=== PATIENT | male | born 1940 | race Caucasian/White ===

== ENCOUNTER 2019-05-02 07:58 | Outpatient (CLI) | payer MEDICARE, BC ==
--- NOTE | 2019-05-02 11:14 | MRI ---
MRI PROSTATE WITH AND WITHOUT CONTRAST: HISTORY: Prostate cancer. TECHNIQUE: Multiplanar, multisequence MR images were obtained of the prostate with and without IV contrast. FINDINGS: There is moderate to severe hypertrophy of the central gland, consistent with BPH. There is a heterog eneous area of subtle low T2 signal in the right aspect of the prostate in the mid gland. This measur es 1.3 cm in greatest dimension. This region demonstrates a washout type curve after the administrati on of contrast. No other suspicious low T2 signal lesions are seen throughout the prostate. No restricted diffusion is seen in the peripheral zone of the prostate. No low signal is seen on the ADC map within the peripheral zone of the prostate. The seminal vesicles are intact. The neurovascular bundles are intact. The right neurovascular bundle is near the lesion marked on DynaCAD. No pelvic adenopathy is seen. No marrow signal abnormality is present. IMPRESSION: There is a lesion at the right aspect of the prostate which is a PI-RADS category 3 lesion, as it is heterogeneous in appearance. However there are washout characteristics in this region and this lesion would be upgraded to a PI-RADS category 4 - high likelihood that a clinically significant cancer is present. POS: CET
== END 2019-05-02 07:59 | disposition home or self-care (01) ==
LOC: TBSIIMAG 07:58
PROVIDERS: ATTEND Urology
DX: C61 Malignant neoplasm of prostate (principal)
CPT/HCPCS: 72197; 82565

== ENCOUNTER 2022-01-13 13:45 | Outpatient (CLI) | payer MEDICARE, BC ==
[~2022-01-13 13:45] MED LIST: Magnevist 469MG/ML 20 ML VIAL ONE
== END 2022-01-13 13:46 | disposition home or self-care (01) ==
LOC: TBSIIMAG 13:45
PROVIDERS: ATTEND Urology
DX: C61 Malignant neoplasm of prostate (principal); N40.0 Benign prostatic hyperplasia without lower urinary tract symptoms
CPT/HCPCS: 72197; 82565; A9579